=== PATIENT | female | born 1995 | race Asian ===

== ENCOUNTER 2017-04-01 09:35 | Emergency (ER) | payer BC ==
[~2017-04-01] VITALS: Ht 165.1 cm; Wt 70.8 kg
[2017-04-01 10:11] VITALS: Ht 165.1 cm; Wt 70.8 kg
[2017-04-01 16:28] VITALS: BP 132/85
== END 2017-04-01 16:28 | disposition home or self-care (01) ==
LOC: ED 09:35
DX: N83.202 Unspecified ovarian cyst, left side (principal); N83.201 Unspecified ovarian cyst, right side; J45.909 Unspecified asthma, uncomplicated; Z91.013 Allergy to seafood
CPT/HCPCS: J1885; J3010; Q0162

== ENCOUNTER 2017-10-27 05:12 | Inpatient (IN) | payer BC ==
[~2017-10-27] VITALS: Ht 162.6 cm; Wt 71.3 kg
[2017-10-27 07:22] LABS: CALCIUM 8.3 mg/dL (8.5-10.1); CARBON DIOXIDE 24.6 mmol/L (21-32); CHLORIDE SERUM 105 mmol/L (98-107); CREATININE SERUM 0.9 mg/dL (0.6-1.0); GFR1 > 60 mL/min; GLUCOSE SERUM 90 mg/dL (74-106); POTASSIUM SERUM 3.5 mmol/L (3.5-5.1); SODIUM SERUM 140 mmol/L (136-145)
[2017-10-27 07:27] LABS: PLATELET COUNT 218 x10^3mcL (130-400); RED CELL DISTRIBUTION WIDTH 13.3 % (11.5-14.5)
[2017-10-27 07:28] LABS: BASOPHIL % 0 % (0-2)
[2017-10-27 07:43] LABS: UA SPECIFIC GRAVITY >=1.030 (1.005-1.035); microscopic required? YES; urine erythrocyte 3+ (NEGATIVE)
[2017-10-27 09:24] LABS: APPEARANCE CSF CLEAR; COLOR CSF COLORLESS; RBC CSF 2 /cumm (0); WBC CSF 2 /cumm (0-5)
[2017-10-27 09:26] LABS: TOTAL PROTEIN CSF 22.8 mg/dL (15-45)
[2017-10-27] MEDS ORDERED: PROVENTIL0.09 MG/A1 INH (11:57)
[2017-10-27] MEDS ORDERED: ALBUTEROL1.25 MG/3 NEB (11:57)
[2017-10-27] MEDS ORDERED: VENTOLIN H0.09 MG/A1 INH (11:58)
[2017-10-27 12:08] LABS: T3 TOTAL 1.04 ng/mL
[2017-10-27 12:16] VITALS: BP 114/61
[2017-10-27 12:26] LABS: CHOLESTEROL/HDL RATIO 2.8; MAGNESIUM 1.7 mg/dL (1.8-2.4); PHOSPHOROUS 2.9 mg/dL (2.5-4.9)
[2017-10-27 12:53] LABS: FREE T4 0.96 ng/dL (0.76-1.46); FREE THYROXINE INDEX 2.4 ug/dL (1.4-4.5); T4(THYROXINE) 7.4 ug/dL (4.7-13.3)
[2017-10-27 15:50] LABS: AMPHETAMINE QUAL UR NONE DETECTED (See below)
[2017-10-27 17:48] VITALS: BP 109/60
[2017-10-27 19:30] VITALS: BP 110/55
[2017-10-28 05:50] VITALS: BP 108/56
[2017-10-28 06:19] LABS: BASOPHIL % 0.1 % (0-2); PLATELET COUNT 227 x10^3mcL (130-400); RED CELL DISTRIBUTION WIDTH 13.2 % (11.5-14.5)
[2017-10-28 06:28] LABS: CALCIUM 8.5 mg/dL (8.5-10.1); CARBON DIOXIDE 25.6 mmol/L (21-32); CHLORIDE SERUM 107 mmol/L (98-107); CREATININE SERUM 0.9 mg/dL (0.6-1.0); GFR1 > 60 mL/min; GLUCOSE SERUM 115 mg/dL (74-106); POTASSIUM SERUM 3.5 mmol/L (3.5-5.1); SODIUM SERUM 142 mmol/L (136-145)
[2017-10-28 09:15] VITALS: BP 114/58
[2017-10-28 12:15] VITALS: Ht 162.6 cm; Wt 71.3 kg
[2017-10-28 12:58] VITALS: BP 110/66
[2017-10-28 17:45] VITALS: BP 122/68
[2017-10-28 21:27] VITALS: BP 115/70
[2017-10-29 05:48] VITALS: BP 110/64
[2017-10-29 06:00] LABS: PLATELET COUNT 219 x10^3mcL (130-400); RED CELL DISTRIBUTION WIDTH 13.3 % (11.5-14.5)
[2017-10-29 06:19] LABS: CALCIUM 8.3 mg/dL (8.5-10.1); CHLORIDE SERUM 108 mmol/L (98-107); CREATININE SERUM 0.8 mg/dL (0.6-1.0); GFR1 > 60 mL/min; GLUCOSE SERUM 105 mg/dL (74-106); POTASSIUM SERUM 3.7 mmol/L (3.5-5.1); SODIUM SERUM 141 mmol/L (136-145)
[2017-10-29 06:51] LABS: BASOPHIL % 0 % (0-2)
[2017-10-29 09:32] VITALS: BP 123/77
[2017-10-29 16:35] VITALS: BP 122/80
[2017-10-29 21:04] VITALS: BP 126/81
[2017-10-30 06:02] VITALS: BP 130/81
[2017-10-30 06:25] LABS: BASOPHIL % 0.3 % (0-2); PLATELET COUNT 235 x10^3mcL (130-400); RED CELL DISTRIBUTION WIDTH 13.4 % (11.5-14.5)
[2017-10-30 06:38] LABS: CALCIUM 7.7 mg/dL (8.5-10.1); CARBON DIOXIDE 25.4 mmol/L (21-32); CHLORIDE SERUM 109 mmol/L (98-107); CREATININE SERUM 0.7 mg/dL (0.6-1.0); GFR1 > 60 mL/min; GLUCOSE SERUM 87 mg/dL (74-106); POTASSIUM SERUM 3.6 mmol/L (3.5-5.1); SODIUM SERUM 141 mmol/L (136-145)
[2017-10-30 08:30] VITALS: BP 125/93
[2017-10-30] MEDS ORDERED: LEVOFLOXACIN500 M1 PO (15:00)
[2017-10-30] MEDS ORDERED: LAC PO (15:01)
[2017-10-30] MEDS ORDERED: FLA500 PO (15:01)
[2017-10-30] MEDS ORDERED: APAP/HYDROCODON1 T13 PO (15:02)
[2017-10-30] MEDS ORDERED: ZOFRAN ODT4 MG SL (15:53)
[2017-10-30 16:12] VITALS: BP 125/93
[2017-10-30 16:55] VITALS: BP 125/80
== END 2017-10-30 18:30 | disposition home or self-care (01) | DRG 853 ==
LOC: ED 05:12 → MU 10:19
PROVIDERS: Emergency Medicine; Family Medicine
PROC: 009U3ZX Drainage of Spinal Canal, Percutaneous Approach, Diagnostic (ICD-10-PCS; principal; 2017-10-27)
PROC: 0UB20ZZ Excision of Bilateral Ovaries, Open Approach (ICD-10-PCS; 2017-10-29)
DX: A41.9 Sepsis, unspecified organism (principal); N17.0 Acute kidney failure with tubular necrosis; N13.6 Pyonephrosis; K52.9 Noninfective gastroenteritis and colitis, unspecified; D27.0 Benign neoplasm of right ovary; J45.909 Unspecified asthma, uncomplicated; Z68.26 Body mass index [BMI] 26.0-26.9, adult; Z91.013 Allergy to seafood; M54.9 Dorsalgia, unspecified; E83.42 Hypomagnesemia
CPT/HCPCS: 83880; 84439; 86788; 86789; 87046; 87046-59; 87491; 87591; 94150; J0330; J0696; J1100; J1170; J1644; J1885; J2001; J2250; J2270; J2405; J2704; J2710; J3010; J3490; J7030; J7120; Q0092; Q0162; Q9967

== ENCOUNTER 2018-06-28 05:06 | Emergency (ER) | payer MEDICAID ==
[~2018-06-28] VITALS: Ht 162.6 cm; Wt 74.8 kg
[~2018-06-28 05:06] MED LIST: ALBUTEROL1.25 MG/3 NEB; APAP/HYDROCODON1 T13 PO; FLA500 PO; LAC PO; LEVOFLOXACIN500 M1 PO; PROVENTIL0.09 MG/A1 INH; VENTOLIN H0.09 MG/A1 INH; ZOFRAN ODT4 MG SL
[2018-06-28 05:13] VITALS: Ht 162.6 cm; Wt 74.8 kg
[2018-06-28 06:25] LABS: BASOPHIL % 0.4 % (0-2); PLATELET COUNT 282 x10^3mcL (130-400); RED CELL DISTRIBUTION WIDTH 13.3 % (11.5-14.5)
[2018-06-28 06:31] LABS: CALCIUM 8.9 mg/dL (8.5-10.1); CARBON DIOXIDE 26.5 mmol/L (21-32); CHLORIDE SERUM 101 mmol/L (98-107); CREATININE SERUM 0.8 mg/dL (0.6-1.0); GFR1 > 60 mL/min; GLUCOSE SERUM 131 mg/dL (74-106); POTASSIUM SERUM 3.5 mmol/L (3.5-5.1); SODIUM SERUM 136 mmol/L (136-145)
[2018-06-28 06:36] LABS: ALBUMIN 4.1 g/dL (3.4-5.0); ALKALINE PHOSPHATASE 66 U/L (46-116); ALT/SGPT 51 U/L (14-59); AST/SGOT 27 U/L (15-37); BILIRUBIN TOTAL 0.48 mg/dL (0.20-1.00); LIPASE 162 IU/L (73-393)
[2018-06-28 07:32] VITALS: BP 139/74
== END 2018-06-28 07:32 | disposition home or self-care (01) ==
LOC: ED 05:06
PROVIDERS: Emergency Medicine
DX: K52.9 Noninfective gastroenteritis and colitis, unspecified (principal); J45.909 Unspecified asthma, uncomplicated; Z91.013 Allergy to seafood
CPT/HCPCS: J2270; J2405; J7030; Q0162

== ENCOUNTER 2018-06-30 20:30 | Emergency (ER) | payer SELFPAY ==
[~2018-06-30] VITALS: Ht 162.6 cm; Wt 74.9 kg
[2018-06-30 20:49] VITALS: Ht 162.6 cm; Wt 74.9 kg
[2018-06-30 21:25] LABS: BASOPHIL % 0.4 % (0-2); PLATELET COUNT 295 x10^3mcL (130-400)
[2018-06-30 21:32] LABS: CALCIUM 8.9 mg/dL (8.5-10.1); CARBON DIOXIDE 29.9 mmol/L (21-32); CHLORIDE SERUM 104 mmol/L (98-107); CREATININE SERUM 0.9 mg/dL (0.6-1.0); GFR1 > 60 mL/min; GLUCOSE SERUM 100 mg/dL (74-106); POTASSIUM SERUM 3.3 mmol/L (3.5-5.1); SODIUM SERUM 141 mmol/L (136-145)
[2018-06-30 21:37] LABS: ALBUMIN 4.1 g/dL (3.4-5.0); ALKALINE PHOSPHATASE 63 U/L (46-116); ALT/SGPT 44 U/L (14-59); AST/SGOT 21 U/L (15-37); BILIRUBIN TOTAL 0.6 mg/dL (0.20-1.00); LIPASE 231 IU/L (73-393); TOTAL PROTEIN, SERUM 8.3 g/dL (6.4-8.2)
[2018-07-01 00:38] VITALS: BP 141/96
== END 2018-07-01 00:38 | disposition home or self-care (01) ==
LOC: ED 20:30
PROVIDERS: Emergency Medicine
DX: K52.9 Noninfective gastroenteritis and colitis, unspecified (principal); R11.10 Vomiting, unspecified; J45.909 Unspecified asthma, uncomplicated; Z98.890 Other specified postprocedural states; Z91.013 Allergy to seafood
CPT/HCPCS: J0500; J1885; J2405; J7030

== ENCOUNTER 2018-12-26 12:23 | Emergency (ER) | payer OTHER ==
[~2018-12-26] VITALS: Ht 162.6 cm; Wt 70.3 kg
[2018-12-26 14:08] VITALS: BP 129/81
== END 2018-12-26 14:08 | disposition home or self-care (01) ==
LOC: ED 12:23
DX: R07.89 Other chest pain (principal); R00.2 Palpitations; K59.00 Constipation, unspecified; J45.909 Unspecified asthma, uncomplicated; Z91.013 Allergy to seafood
CPT/HCPCS: Q0092